=== PATIENT | female | born 1935 | race Caucasian/White ===

== ENCOUNTER 2019-03-10 14:33 | Inpatient (IN) | payer MEDICARE, MEDICAID ==
[~2019-03-10] VITALS: Ht 152.4 cm; Wt 47.6 kg
[~2019-03-10 14:33] MED LIST: ACET325S17 PO; ACET325T53 PO; AMLO2.5T2 PO; ASA81 PO; BENA10TA11 PO; CICL90CR10 TP; CLOB30CR27 TP; DIPH25CA83 PO; DIVA250T PO; DOCU-144 PO; DONE10TA44 PO; LEVO-100 PO; LORA-258 PO; MECL-97 PO; MECL25TA3 PO; MEMA10TA PO; METO25TA3 PO; METO25TA6 PO; OMEP-268 PO; OMEP20CA11 PO; QUET50TA22 PO; RISP0.5T5 PO; RISP1TAB7 PO; SERT25TA PO; TRAM200T36 PO; TRAM50TA2 PO; TRAM50TA92 PO; ZOLP5TAB2 PO
[2019-03-10 14:48] VITALS: BP_SYST 177
--- NOTE | 2019-03-10 14:48 | NUR ---
Patient is confused, her son is at bedside. Patient's son states that she fell on Monday in the shower and has been complaining of sternal pain. No trauma or discoloration noted at site of pain.
--- NOTE | 2019-03-10 14:50 | NUR ---
MICHELLE Escalera at bedside examining patient.
[2019-03-10] MEDS ORDERED: PIPERACILLIN/TAZO 3.375 GM in NS 50 ML IV ONE (16:30)
[2019-03-10] MEDS ORDERED: NACL 0.9% 1,000 ML IV ONE (16:30)
[2019-03-10] MEDS ORDERED: MORPHINE 4 MG/ML INJ. SYRINGE IVP ONE (16:45)
[2019-03-10] MEDS ORDERED: PIPERACILLIN/TAZOBACTAM 3.375 GM/VIAL (ZOSYN) IV ONE (16:49)
[2019-03-10 17:00] LABS: BASOPHILS % (AUTO) 0.2 % (0.0-2.0); MEAN CORPUSCULAR VOLUME 96 fL (79.0-98.0); MONOCYTES # (AUTO) 0.4 K/uL (0.0-1.0); NEUTROPHILS # (AUTO) 4.4 K/uL (1.8-7.7); PLATELET COUNT (AUTO) 157 K/uL (130-430); WHITE BLOOD COUNT (AUTO) 5.7 K/uL (4.8-10.8)
[2019-03-10 17:07] LABS: EOSINOPHILS % (AUTO) 0.7 % (0.0-4.0); HEMATOCRIT 41.7 % (36-48); HEMOGLOBIN 14.5 g/dL (12.0-16.0); LYMPHOCYTES # (AUTO) 0.9 K/uL (1.0-5.5); LYMPHOCYTES % (AUTO) 15.2 % (20.5-51.5); MEAN CORPUSCULAR HEMOGLOBIN 33 pg (27-31); MEAN CORPUSCULAR HGB CONC 35 % (32-36); MONOCYTES % (AUTO) 6.9 % (1.7-9.3); RED BLOOD CELL COUNT(AUTO) 4.33 MIL/uL (4.2-6.2); RED CELL DISTRIBUTION WIDTH 13.8 % (9.0-15.0)
[2019-03-10 17:08] LABS: CALCIUM 8.3 mg/dL (8.4-11.0); CREATININE 0.56 mg/dL (0.55-1.30); GLUCOSE 94 mg/dL (70-99); UREA NITROGEN, BLOOD 18 mg/dL (8-21)
[2019-03-10 17:09] LABS: ANION GAP 4 (5-15); CHLORIDE 107 mmol/L (98-107); SODIUM SERUM 141 mmol/L (136-145)
[2019-03-10 17:15] LABS: TOTAL BILIRUBIN 0.4 mg/dL (0.0-1.0)
[2019-03-10 17:16] LABS: ALANINE AMINOTRANSFERASE 33 U/L (12-78); ALBUMIN 2.8 g/dL (3.4-4.8); ASPARTATE AMINOTRANSFERASE 45 U/L (10-37)
--- NOTE | 2019-03-10 17:20 | NUR ---
Medication reconciliation completed with information provided by patient's son. Any prior medication reconciliation on file was reviewed and corrected.
[2019-03-10] MEDS ORDERED: POTASSIUM CHLORIDE 20 MEQ TAB.PRT.SR PO ONE (17:30)
[2019-03-10] MEDS ORDERED: VANCOMYCIN HCL 1,000 MG in NS 250 ML IV ONE (17:45)
[2019-03-10] MEDS ORDERED: NS 500 ML IV ONE (17:45)
[2019-03-10] MEDS ORDERED: VANCOMYCIN HCL 1000 MG/VIAL IV ONE (18:04)
[2019-03-10] MEDS ORDERED: POTASSIUM CHLORIDE 40 MEQ in NS 250 ML IV ONE (18:15)
[2019-03-10 18:20] LABS: BILIRUBIN,URINE NEGATIVE (NEGATIVE); CLARITY/URINE CLEAR (CLEAR); COLOR,URINE YELLOW (YELLOW); GLUCOSE,URINE NEGATIVE (NEGATIVE); KETONES,URINE NEGATIVE (NEGATIVE); LEUKOCYTE ESTERASE ,URINE NEGATIVE (NEGATIVE); NITRITE, URINE NEGATIVE (NEGATIVE); PROTEIN URINE NEGATIVE (NEGATIVE); UROBILINOGEN,URINE 0.2 (0.2-1.0)
--- NOTE | 2019-03-10 18:20 | NUR ---
Shimon burdick in EDM - 03/10/19 at 1930 by [email or web address] Transfer medsurg. IV present no signs or symptoms of infiltration.
[2019-03-10 18:23] LABS: BLOOD, URINE TRACE (NEGATIVE)
--- NOTE | 2019-03-10 18:23 | NUR ---
K-rider not available. Philip, bridge/structure inspection team leader notified.
--- NOTE | 2019-03-10 18:30 | NUR ---
Called greenhouse transplanter, states he does not have access to pharmacy for K-Reji.
[2019-03-10 18:31] LABS: BACTERIA,URINE FEW /HPF (None Seen); MUCUS,URINE None Seen /LPF (None Seen); WBC,URINE 0-3 /HPF (0-3)
--- NOTE | 2019-03-10 18:32 | NUR ---
Called ALEXANDER Wong in ICU. She states she will get a K-Reji.
--- NOTE | 2019-03-10 18:42 | NUR ---
ALEXANDER Wong called back and stated there is no 250cc 40 MEQ K-rider available, only 1L. Dr. Escalera verbally stated that is fine and to run 1L K-rider at 100cc/hr.
--- NOTE | 2019-03-10 18:51 | NUR ---
Judith provide 20MEQ K-rider x2. Dr. Escalera stated to run at 50cc/hr to run over 4hours.
--- NOTE | 2019-03-10 18:52 | NUR ---
Patient will be admitted to care of Dr. Terrazas. Admitted to medsurg unit. Room to be assigned. Belongings list completed. Summary report printed. Report will be given at bedside.
--- NOTE | 2019-03-10 18:56 | NUR ---
Patient pulled IV out again.
[2019-03-10] MEDS ORDERED: KCL 20 mEq in D5/0.45NS 1000mL 1,000 ML IV ONE ×2 (19:00→23:06)
[2019-03-10] MEDS ORDERED: KCL 20 mEq in 100 mL (PREMIX) 200 ML IV ONE (19:03)
[2019-03-10] MEDS ORDERED: KCL 20 mEq in 100 mL (PREMIX) 100 ML IV ONE (19:15)
--- NOTE | 2019-03-10 19:20 | NUR ---
Transfer medsurg. IV present no signs or symptoms of infiltration.
--- NOTE | 2019-03-10 19:20 | NUR ---
Shimon burdick in ED - 03/10/19 at 1931 by BLAYNE Second K=
--- NOTE | 2019-03-10 19:21 | NUR ---
Second K-rider endorsed to ALEXANDER Olson and ALEXANDER Canales.
[2019-03-10 19:35] VITALS: BP_SYST 143
--- NOTE | 2019-03-10 19:35 | NUR ---
Admitting Note patient brought to room 105B via gurney, no acute distress noted, respirations even and unlabored on room air, IV infusing well, no redness or swelling noted to IV site, patient A&Ox1 to person, patients family at bedside, room close to nurses station, educated patient on use of call light and asked to call for assistance, patient verbalized understanding, call light in reach, bed in low and locked position, bed alarm on.
--- NOTE | 2019-03-10 20:17 | NUR ---
Endorsement bedside SBAR report given to receiving RN, patient resting in bed, calm, no acute distress noted, patients family at bedside, IV fluid infusing well, endorsed second k-rider to Ally RN, room close to nurses station, call light in reach, bed in low and locked position, bed alarm on, care endorsed to receiving RN.
--- NOTE | 2019-03-10 20:25 | NUR ---
ROUNDS PATIENT RESTING COMFORTABLY IN BED, NOT IN DISTRESS, VITALS STABLE. DENIES ANY PAIN AND DISCOMFORT AT THIS TIME. ASSESSMENT DONE AND DOCUMENTED. ORIENTED TO HER ROOM, PHONE AND CALL LIGHT. PLAN OF CARE DISCUSSED WITH THE FAMILY AND VERBALIZED UNDERSTANDING. NEEDS ATTENDED TO. SAFETY MEASURES IN PLACED. CALL LIGHT PLACED WITHIN REACH.
--- NOTE | 2019-03-10 21:35 | NUR ---
MEDICATION DUE MEDICATIONS GIVEN SCHEDULED, TOLERATED WELL. WILL CONTINUE TO MONITOR.
[2019-03-10] MEDS ORDERED: ACETAMINOPHEN 325 MG TABLET PO PRN (22:00)
[2019-03-10] MEDS ORDERED: LevALBUTEROL HCL 1.25 MG/0.5 ML *CONC.* VIAL.NEB (XOPENEX CONC.) INH PRN (22:00)
[2019-03-10] MEDS ORDERED: cefTRIAXone 1 GM IVPB PREMIX 50 ML IV ONE (23:05)
[2019-03-10] MEDS ORDERED: AZITHROMYCIN 500 MG/VIAL (ZITHROMAX) IV ONE (23:07)
[2019-03-10] MEDS: cefTRIAXone 1 GM in D5W 50 ML IV SCH (23:16)
[2019-03-10] MEDS: LevALBUTEROL HCL 1.25 MG/0.5 ML *CONC.* VIAL.NEB (XOPENEX CONC.) INH SCH (23:36)
[2019-03-10 23:39] VITALS: BP_SYST 143
[2019-03-10] MEDS: AZITHROMYCIN 500 MG in NS 250 ML IV SCH (23:52)
--- NOTE | 2019-03-11 00:13 | NUR ---
PATIENT RESTING: Patient resting quietly. No acute distress noted. Vital signs within normal range.
[2019-03-11 01:18] VITALS: BP_SYST 143
[2019-03-11] MEDS: KCL 20 mEq in D5/0.45NS 1000mL 1,000 ML IV SCH ×3 (01:32→13:41)
--- NOTE | 2019-03-11 02:13 | NUR ---
ROUNDS PATIENT RESTING: Patient resting quietly. No acute distress noted. Vital signs within normal range.
--- NOTE | 2019-03-11 04:15 | NUR ---
ROUNDS PATIENT ASLEEP, RESPIRATIONS EVEN AND UNLABORED, WILL CONTINUE TO MONITOR
--- NOTE | 2019-03-11 06:20 | NUR ---
CLOSING NOTES PATIENT AWAKE, VITALS STABLE, NO PAIN AND DISCOMFORT NOTED. ALL NEEDS ATTENDED TO. SAFETY MEASURES MAINTAINED. CALL LIGHT PLACED WITHIN REACH.
--- NOTE | 2019-03-11 06:53 | NUR ---
Nutrition Update Sherif Scale 18 noted. Pt admitted for Right Sided Pneumonia Diet: Mechanical soft BMI: 20.5 kg/m2 RD to follow per nutrition care standards.
[2019-03-11] MEDS: LevALBUTEROL HCL 1.25 MG/0.5 ML *CONC.* VIAL.NEB (XOPENEX CONC.) INH SCH ×3 (07:37→23:13)
--- NOTE | 2019-03-11 07:40 | NUR ---
INITIAL NOTE RECEIVED PT IN BED, NO S/S OF DISTRESS OR SOB NOTED, PT HAS NO C/O PAIN AT THIS TIME, PT IN STABLE CONDITION, PT AAOX1, CONFUSED, PROVIDED PT WITH REALITY ORIENTATION, [place]LANDER SPEAKING. IV CATHETER PATENT, RUNNING IV FLUIDS ORDERED, NO SIGNS OF INFECTION OR INFILTRATION NOTED. BED AT LOWEST POSITION, CALL LIGHT WITHIN REACH, WILL CONTINUE TO MONITOR PT FOR ANY CHANGES, FALL AND SAFETY PRECAUTIONS IN PLACE. PT ON AN AIR MATTRESS.
[2019-03-11 08:10] VITALS: BP_SYST 158
[2019-03-11] MEDS: PANTOPRAZOLE SODIUM 40 MG TAB PO SCH (08:40)
[2019-03-11] MEDS: BENAZEPRIL HCL 10 MG TABLET (LOTENSIN) PO SCH (08:40)
[2019-03-11] MEDS: amLODIPine BESYLATE 5 MG TABLET PO SCH (08:41)
--- NOTE | 2019-03-11 10:30 | NUR ---
ROUNDS PT IN BED, NO S/S OF DISTRESS OR SOB NOTED, PT HAS NO C/O PAIN AT THIS TIME, PT IN STABLE CONDITION, PT JUST AMBULATED WITH ASSIST FROM PHYSICAL THERAPY AND ASSIST OF WALKER, WILL CONTINUE TO MONITOR PT FOR ANY CHANGES, PT HAS VISITORS AT BEDSIDE.
[2019-03-11 11:26] VITALS: BP_SYST 154
--- NOTE | 2019-03-11 12:05 | NUR ---
ROUNDS PT IN BED, NO S/S OF DISTRESS OR SOB NOTED,PT HAS NO C/O PAIN AT THIS TIME, PT IN STABLE CONDITION, PT RESTING COMFORTABLY, WILL CONTINUE TO MONITOR PT FOR ANY CHANGES.
--- NOTE | 2019-03-11 14:53 | NUR ---
MD ROUNDS DR COLVIN ROUNDING AWARE OF PATIENT'S CONDITION.
--- NOTE | 2019-03-11 14:53 | NUR ---
ROUNDS PT IN BED, NO S/S OF DISTRESS OR SOB NOTED,PT HAS NO C/O PAIN AT THIS TIME, PT IN STABLE CONDITION, PT RESTING COMFORTABLY, WILL CONTINUE TO MONITOR PT FOR ANY CHANGES. VISITORS AT BEDSIDE.
[2019-03-11 15:14] VITALS: BP_SYST 118
[2019-03-11] MEDS: KETOROLAC TROMETHAMINE 15 MG VIAL IVP PRN (15:14)
--- NOTE | 2019-03-11 18:31 | NUR ---
CLOSING NOTE PT IN BED, NO S/S OF DISTRESS OR SOB NOTED, PT HAS NO C/O PAIN AT THIS TIME, PT IN STABLE CONDITION, PT AAOX1, STILL CONFUSED, PROVIDED PT WITH REALITY ORIENTATION, FRENCH SPEAKING. IV CATHETER PATENT, RUNNING IV FLUIDS ORDERED, NO SIGNS OF INFECTION OR INFILTRATION NOTED. BED AT LOWEST POSITION, CALL LIGHT WITHIN REACH, WILL ENDORSE CARE OF PT TO INCOMING NURSE, FALL AND SAFETY PRECAUTIONS IN PLACE. PT ON AN AIR MATTRESS. NEEDS MET THROUGHOUT SHIFT.
--- NOTE | 2019-03-11 19:15 | NUR ---
OPENING NOTE Received patient awake, AOx1, resting in bed. No sign of distress, nonlabored breathing on room air. IVF infusing via rt hand IV. daughter in law visiting at bedside. bed is locked in lowest position, bed alarm on, side rails up 3x and call light w/in reach. Updated board and reviewed plan of care.
[2019-03-11 20:00] VITALS: BP_SYST 120
[2019-03-11] MEDS: ENOXAPARIN SODIUM 40 MG/0.4 ML SYRINGE SUBCUT SCH (21:25)
[2019-03-11] MEDS: DONEPEZIL HCL 5 MG TABLET (ARICEPT) PO SCH (21:25)
--- NOTE | 2019-03-11 21:25 | NUR ---
Medications Due medications given, crushed and mixed with applesauce. Patient was cooperative and took medication. She put some resistance with Lovenox SQ; grand daughter present and held her hand, while injection was administered. She tolerated and was calm, once again.
[2019-03-11] MEDS: cefTRIAXone 1 GM in D5W 50 ML IV SCH (23:32)
[2019-03-12] MEDS: AZITHROMYCIN 500 MG in NS 250 ML IV SCH ×2 (00:17→23:56)
[2019-03-12 01:31] VITALS: BP_SYST 114
[2019-03-12] MEDS: KCL 20 mEq in D5/0.45NS 1000mL 1,000 ML IV SCH ×2 (03:41→16:43)
--- NOTE | 2019-03-12 03:41 | NUR ---
IVF IVF fluids empty. Hung new bag and infusing as ordered. IV infusing well and patient tolerating. Daughter is resting in room with patient.
[2019-03-12 06:46] LABS: BASOPHILS % (AUTO) 0.4 % (0.0-2.0); EOSINOPHILS % (AUTO) 1.1 % (0.0-4.0); HEMATOCRIT 32.8 % (36-48); HEMOGLOBIN 11.8 g/dL (12.0-16.0); LYMPHOCYTES # (AUTO) 1.1 K/uL (1.0-5.5); LYMPHOCYTES % (AUTO) 23.4 % (20.5-51.5); MEAN CORPUSCULAR HEMOGLOBIN 34 pg (27-31); MEAN CORPUSCULAR HGB CONC 36 % (32-36); MEAN CORPUSCULAR VOLUME 95 fL (79.0-98.0); MONOCYTES # (AUTO) 0.4 K/uL (0.0-1.0); MONOCYTES % (AUTO) 9.7 % (1.7-9.3); NEUTROPHILS % (AUTO) 65.4 % (40.0-70.0); PLATELET COUNT (AUTO) 130 K/uL (130-430); RED BLOOD CELL COUNT(AUTO) 3.44 MIL/uL (4.2-6.2); RED CELL DISTRIBUTION WIDTH 13.4 % (9.0-15.0); WHITE BLOOD COUNT (AUTO) 4.6 K/uL (4.8-10.8)
[2019-03-12 06:50] LABS: ANION GAP 7 (5-15); CALCIUM 7.6 mg/dL (8.4-11.0); CHLORIDE 111 mmol/L (98-107); CREATININE 0.53 mg/dL (0.55-1.30); GLUCOSE 86 mg/dL (70-99); POTASSIUM 3.9 mmol/L (3.5-5.1); SODIUM SERUM 142 mmol/L (136-145); UREA NITROGEN, BLOOD 8 mg/dL (8-21)
--- NOTE | 2019-03-12 06:50 | NUR ---
Closing note Patient resting in comfortable position. No sign of distress noted, Nonlabored breathing on room air. IVF infusing well. Safety precautions maintained, will endorse care to oncoming day shift nurse.
[2019-03-12 07:39] VITALS: BP_SYST 127
--- NOTE | 2019-03-12 07:40 | NUR ---
INITIAL NOTE RECEIVED PT IN BED, NO S/S OF DISTRESS OR SOB NOTED, PT HAS NO C/O PAIN AT THIS TIME, PT IN STABLE CONDITION, PT AAOX1, CONFUSED, PROVIDED PT WITH REALITY ORIENTATION, [place]AMBIAN SPEAKING. FAMILY AT BEDSIDE. IV CATHETER PATENT, RUNNING IV FLUIDS ORDERED, NO SIGNS OF INFECTION OR INFILTRATION NOTED. BED AT LOWEST POSITION, CALL LIGHT WITHIN REACH, WILL CONTINUE TO MONITOR PT FOR ANY CHANGES, FALL AND SAFETY PRECAUTIONS IN PLACE. PT ON AN AIR MATTRESS.
[2019-03-12] MEDS: PANTOPRAZOLE SODIUM 40 MG TAB PO SCH (08:15)
[2019-03-12] MEDS: BENAZEPRIL HCL 10 MG TABLET (LOTENSIN) PO SCH (08:15)
[2019-03-12] MEDS: amLODIPine BESYLATE 5 MG TABLET PO SCH (08:15)
[2019-03-12] MEDS: LevALBUTEROL HCL 1.25 MG/0.5 ML *CONC.* VIAL.NEB (XOPENEX CONC.) INH SCH ×3 (08:16→23:26)
[2019-03-12 11:30] VITALS: BP_SYST 128
--- NOTE | 2019-03-12 14:40 | NUR ---
ROUNDS PT IN BED, NO S/S OF DISTRESS OR SOB NOTED,PT HAS NO C/O PAIN AT THIS TIME, PT IN STABLE CONDITION, PT RESTING COMFORTABLY, WILL CONTINUE TO MONITOR PT FOR ANY CHANGES. FAMILY AT BEDSIDE.
[2019-03-12 15:20] VITALS: BP_SYST 130
--- NOTE | 2019-03-12 18:27 | NUR ---
CLOSING NOTE PT IN BED, NO S/S OF DISTRESS OR SOB NOTED, PT HAS NO C/O PAIN AT THIS TIME, PT IN STABLE CONDITION, PT AAOX1, STILL CONFUSED, PROVIDED PT WITH REALITY ORIENTATION, KOREAN SPEAKING. IV CATHETER PATENT, RUNNING IV FLUIDS ORDERED, NO SIGNS OF INFECTION OR INFILTRATION NOTED. BED AT LOWEST POSITION, CALL LIGHT WITHIN REACH, WILL ENDORSE CARE OF PT TO INCOMING NURSE, FALL AND SAFETY PRECAUTIONS IN PLACE. PT ON AN AIR MATTRESS. NEEDS MET THROUGHOUT SHIFT. FAMILY AT BEDSIDE.
--- NOTE | 2019-03-12 18:28 | NUR ---
MD ROUNDS DR COLVIN ROUNDING, AWARE OF PATIENT'S CONDITION.
--- NOTE | 2019-03-12 19:43 | NUR ---
OPENING NOTE Received patient awake, AOx1, resting in bed, eyes closed and family visiting at bedside. No sign of distress, nonlabored breathing on room air. IVF infusing via rt hand IV. Bed is locked in lowest position, bed alarm on, side rails up 3x and call light w/in reach. Updated board and reviewed plan of care.
[2019-03-12 20:00] VITALS: BP_SYST 118
[2019-03-12] MEDS: DONEPEZIL HCL 5 MG TABLET (ARICEPT) PO SCH (21:52)
[2019-03-12] MEDS: cefTRIAXone 1 GM in D5W 50 ML IV SCH (21:52)
--- NOTE | 2019-03-12 21:55 | NUR ---
medication / patient care due medications given . tablets were crushed and mixed with applesauce. Provided with bed bath and perfecto-care, patient tolerated.
[2019-03-12] MEDS: ENOXAPARIN SODIUM 40 MG/0.4 ML SYRINGE SUBCUT SCH (21:58)
--- NOTE | 2019-03-12 23:55 | NUR ---
Antibiotic Due antibiotic given, infusing well.
--- NOTE | 2019-03-13 01:20 | NUR ---
RN rounds Patient resting w/ eyes closed, symmetrical rise and fall of chest. IVF infusing well. Family resting at bedside. Call light w/in reach.
[2019-03-13 02:00] VITALS: BP_SYST 101
--- NOTE | 2019-03-13 03:20 | NUR ---
Rounds Patient resting w/ eyes closed, symmetrical rise and fall of chest, nonlabored breathing. Safety precautions maintained. Will monitor.
[2019-03-13] MEDS: KCL 20 mEq in D5/0.45NS 1000mL 1,000 ML IV SCH ×2 (05:19→22:24)
--- NOTE | 2019-03-13 05:37 | NUR ---
Patient care / rounds Patient provided with perfecto-care; provided with clean pad and linen. IV site is leaking, no longer patent. IV catheter removed, tip visualized intact, no active bleeding noted.
[2019-03-13] MEDS: LevALBUTEROL HCL 1.25 MG/0.5 ML *CONC.* VIAL.NEB (XOPENEX CONC.) INH SCH ×3 (07:20→23:44)
--- NOTE | 2019-03-13 07:45 | NUR ---
OPENING NOTE RECEIVED PATIENT RESTING IN BED AWAKE AND CONFUSED. NO S/SX PAIN. ROOM AIR. NO ACUTE DISTRESS. NO SOB. RESPIRATION EVEN AND UNLABORED. SKIN WARM AND DRY TO TOUCH. NO IV SITE NOTED. SON AT BEDSIDE. ALL NEEDS MET. BED IN LOW AND LOCKED POSITION. SIDERAIL UPX3. BED ALARM ON. CALL LIGHT IN REACH. CONT TO MONITOR
[2019-03-13 08:00] VITALS: BP_SYST 128
[2019-03-13] MEDS: amLODIPine BESYLATE 5 MG TABLET PO SCH (09:53)
[2019-03-13] MEDS: PANTOPRAZOLE SODIUM 40 MG TAB PO SCH (09:53)
[2019-03-13] MEDS: BENAZEPRIL HCL 10 MG TABLET (LOTENSIN) PO SCH (09:54)
--- NOTE | 2019-03-13 10:00 | NUR ---
MEDS ALL DUE MEDS ADMINISTERED, MEGGAN WELL. REPOSITIONED FOR COMFORT. CONT TO MONITOR. SON AND BEDSIDE
--- NOTE | 2019-03-13 10:45 | NUR ---
PT SEEN B PHYSICAL THERAPY. AMBULATED ON UNIT WITH PT. CONT TO MONITOR
[2019-03-13 11:24] VITALS: BP_SYST 146
--- NOTE | 2019-03-13 12:05 | NUR ---
PHYSICAL THERAPY CO-SIGN The Physical Therapy Progress Notes documented by Bulk Sealer have been reviewed. Reviewed/Co-Signed by: Davi Guadalupe Documentation Done by: Jeffy Soliz PTA Addendum: 03/13/19 at 1206 by Davi Guadalupe PT Amended: Links added.
--- NOTE | 2019-03-13 12:05 | NUR ---
PHYSICAL THERAPY CO-SIGN The Physical Therapy Progress Notes documented by Jacquard Loom Carpet Weaver have been reviewed. Reviewed/Co-Signed by: Davi Guadalupe Documentation Done by: Jeffy Soliz PTA Addendum: 03/13/19 at 1206 by Davi Guadalupe PT Amended: Links added.
--- NOTE | 2019-03-13 12:30 | NUR ---
NOTE INCONTINENCE CARE PROVIDED BY RESIDENT ASSISTANT CNA; BM. KEPT CLEAN AND DRY. ALL NEEDS MET. DAUGHTER AT BEDSIDE. CONT TO MONITOR
--- NOTE | 2019-03-13 14:00 | NUR ---
NOTE PATIENT AWAKE IN BED. REPOSITIONED FOR COMFORT. ALL NEEDS MET. CALL LIGHT IN REACH. CONT TO MONITOR
[2019-03-13 15:27] VITALS: BP_SYST 144
--- NOTE | 2019-03-13 16:25 | NUR ---
NOTE PATIENT RESTING IN BED. STABLE. NOTED RISE/FALL CHEST. NO ACUTE DISTRESS. ALL NEEDS MET. CONT TO MONITOR. DAUGHTER AT BEDSIDE.
--- NOTE | 2019-03-13 18:45 | NUR ---
CLOSING NOTE PATIENT STABLE. NO ACUTE DISTRESS. NO SOB. RESPIRATION EVEN AND UNLABORED. SKIN WARM AND DRY TO TOUCH. IV INTACT AND PATENT; MEGGAN IVF. KEPT CLEAN AND DRY. SEEN AND EXAMINED BY AT BEDSIDE. DAUGHTER AT BEDSIDE. POSSIBLE DISCHARGE TOMORROW PER MD. ALL NEEDS MET. CALL LIGHT IN REACH. CONT TO MONITOR.
[2019-03-13] MEDS: KETOROLAC TROMETHAMINE 15 MG VIAL IVP PRN (19:00)
[2019-03-13 20:13] VITALS: BP_SYST 143
--- NOTE | 2019-03-13 20:57 | NUR ---
FALL MEASURES IMPLEMENTED BED ALARM IS ON FREQUENT VISUAL MONITOR patient has History of FALLS .
--- NOTE | 2019-03-13 20:59 | NUR ---
TURN & REPOSITIONING OFF LOADING WITH PILLOWS INCONTINENT OF URINE , KEPT CLEAN ALSO DRY NEEDED .
[2019-03-13] MEDS: cefTRIAXone 1 GM in D5W 50 ML IV SCH (22:16)
[2019-03-13] MEDS: AZITHROMYCIN 500 MG in NS 250 ML IV SCH (22:16)
[2019-03-13] MEDS: DONEPEZIL HCL 5 MG TABLET (ARICEPT) PO SCH (22:17)
[2019-03-13] MEDS: ENOXAPARIN SODIUM 40 MG/0.4 ML SYRINGE SUBCUT SCH (22:18)
--- NOTE | 2019-03-13 23:39 | NUR ---
Z GUARD OINTMENT applied to buttocks areas , patient is INCONTINENT OF STOOL & URINE kept clean & dry as needed .
[2019-03-14 00:59] VITALS: BP_SYST 137
--- NOTE | 2019-03-14 04:02 | NUR ---
LOVENOX 40 MG SUB Q. ADMINISTER ORDERED NO ADVERSE REACTION NOTED SKIN COLOR WNL CHEST MOVEMENT SYMMETRICAL ALSO UNLABORED .
--- NOTE | 2019-03-14 07:22 | NUR ---
rn opening note Report was endorsed by night nurse.Patient is laying in bed no signs of any distress, breathing is equal and non labored. Patient has family at bed side. All safety precautions in place. Patient is close to nurses station. Educated patient and family converter skimmer light for assistance. Patient has no other needs at this time. will continue to monitor.
[2019-03-14] MEDS: LevALBUTEROL HCL 1.25 MG/0.5 ML *CONC.* VIAL.NEB (XOPENEX CONC.) INH SCH ×2 (07:23→15:11)
[2019-03-14 07:30] VITALS: BP_SYST 124
[2019-03-14] MEDS: BENAZEPRIL HCL 10 MG TABLET (LOTENSIN) PO SCH (08:24)
[2019-03-14] MEDS: PANTOPRAZOLE SODIUM 40 MG TAB PO SCH (08:25)
[2019-03-14] MEDS: amLODIPine BESYLATE 5 MG TABLET PO SCH (08:27)
--- NOTE | 2019-03-14 09:45 | NUR ---
RN ROUNDING PATIENT APPEARS TO BE RESTING WITH BOTH EYES CLOSED, BREATHING IS EQUAL AND NON LABORED. PATIENT HAS FAMILY AT BEDSIDE.PATIENT IS CLOSE TO NURSES STATION. ALL SAFETY PRECAUTIONS IN PLACE. FAMILY WAS EDUCATED SALES PROGRAM COORDINATOR LIGHT FOR ASSISTANCE. NO OTHER NEEDS AT THIS TIME. WILL CONTINUE TO MONITOR.
--- NOTE | 2019-03-14 11:00 | NUR ---
rn rounding Patient is laying in bed no signs of any distress, breathing is equal and nonlabored. Patient has all safety precautions in place. Call light is with patient. Educated family to use call light for assistance. family is at bedside. patient has no other needs at this time. close to nurses station. will continue to monitor.
[2019-03-14 12:08] VITALS: BP_SYST 145
--- NOTE | 2019-03-14 13:17 | NUR ---
rn rounding Patient is laying in bed no signs of any distress, breathing is equal and non labored. Addendum: 03/14/19 at 1319 by Alia Almeida RN Patient has all safety precautions in place. Family is at bedside. patients family educated states no needs at this time. Patients family educated curator of education light , call light is with patient. Patient is close to nurses station. will continue to monitor.
[2019-03-14 15:11] VITALS: BP_SYST 145
--- NOTE | 2019-03-14 15:20 | NUR ---
DISCHARGE PATIENT IS AWAKE AND ALERT BUT IS CONFUSED. PATIENT AND FAMILY EDUCATED ON DISCHARGE PAPER WORK. FAMILY GIVEN PRESCRIPTION. PATIENT IV CATHETER REMOVED CATHETER INTACT APPLIED GAUZE AND TAPE TO INSERTION SITE. ID BAND REMOVED. PATIENT AND FAMILY HAVE NO FURTHER QUESTION. PATIENTS FAMILY HAS ALL INFORMATION FOR HOME HEALTH NEW ORDER WAS FAXED OVER BY CASE MANAGEMENT. PATIENT TRANSFERRED TO CAR VIA WHEEL CHAIR ALL BELONGINGS WITH PATIENT.
--- NOTE | 2019-03-14 16:12 | NUR ---
DC Planning: Updated DCP to Monica and FAX DC Plan order to fax # [phone] requesting a set up.
[2019-03-14 16:39] VITALS: BP_SYST 135
[2019-03-14 16:43] VITALS: BP_SYST 135
[2019-03-14] MEDS ORDERED: DOXY100T2 PO (16:58)
[2019-03-14] MEDS ORDERED: CLOT45CR TP (16:59)
--- NOTE | 2019-03-14 17:59 | NUR ---
PHYSICAL THERAPY CO-SIGN The Physical Therapy Progress Notes documented by Dragsaw Operator have been reviewed. Reviewed/Co-Signed by: Carmelita Ruano PT Documentation Done by:AMALIA CAVANAUGH ASSOCIATE BRAND MANAGER WILL BENEFIT W/ P.T. POST ACUTE STAY. Addendum: 03/14/19 at 1800 by Carmelita Ruano PT Amended: Links added.
--- NOTE | 2019-03-15 16:29 | NUR ---
Discharge Planning: DCP faxed pt referral to [facility] ([phone] p [phone]) Per Abbi pt was accepted.
--- NOTE | 2019-03-21 15:34 | NUR ---
DISCHARGE FOLLOW UP PHONE CALL JA/ CALEB WATKINS PHONED PATIENT, . SPOKE TO PATIENT'S DAUGHTER IN LAW (ELEUTERIO MORAN) OF PATIENT'S SON LAQUITA MORAN. SHE STATED PATIENT IS DOING BETTER. SHE HAS NO QUESTIONS ON DISCHARGE INSTRUCTIONS. SHE HAS AN APPOINTMENT IN MAY 2019 WITH HER PCP. ALREADY FILLED HER PRESCRIPTION. HAS NO QUESTIONS OR CONCERNS. WILL CALL THE HOSPITAL IF ANY QUESTIONS IN THE FUTURE.
== END 2019-03-14 17:20 | disposition home health service (06) | DRG 720 ==
LOC: SED 14:33 → SMU 18:48
PROVIDERS: ADMIT Family Medicine; ATTEND Family Medicine
DX: A41.9 Sepsis, unspecified organism (principal); E43 Unspecified severe protein-calorie malnutrition; J15.6 Pneumonia due to other Gram-negative bacteria; G30.9 Alzheimer's disease, unspecified; D64.9 Anemia, unspecified; F02.80 Dementia in other diseases classified elsewhere, unspecified severity, without behavioral disturbance, psychotic disturbance, mood disturbance, and anxiety; S22.31XA Fracture of one rib, right side, initial encounter for closed fracture; E78.5 Hyperlipidemia, unspecified; I10 Essential (primary) hypertension; M81.0 Age-related osteoporosis without current pathological fracture; M19.90 Unspecified osteoarthritis, unspecified site; Z68.20 Body mass index [BMI] 20.0-20.9, adult; I44.1 Atrioventricular block, second degree; R21 Rash and other nonspecific skin eruption; W19.XXXA Unspecified fall, initial encounter; Y93.89 Activity, other specified; Y92.89 Other specified places as the place of occurrence of the external cause; Y99.8 Other external cause status
CPT/HCPCS: 36415; 71250-TC; 80048; 80053; 81000-TC; 82306; 83605; 85025; 87040-TC; 87086; 94640; 94760; 96365; 96366; 96367; 96375; 97116-GP; 97530-GP; 99285; J0456; J0696; J1650; J1885; J2270; J2543; J3370; J3480; J7050; J7060; J7612